=== PATIENT | female | born 1950 | race Two or more races ===

== ENCOUNTER 2025-02-25 12:33 | Inpatient (IN) | payer OTHER ==
[2025-02-25] VITALS (16 sets, daily range): BP systolic 115–172; BP diastolic 66–92; PULSE 84–135; RESP 17–26; TEMP 97.8–98.5; O2SAT 94–98
[~2025-02-25] VITALS: Ht 152.4 cm; Wt 51.3 kg
--- NOTE | 2025-02-25 12:57 | ED.PDOC ---
History of Present Illness HPI Comments This is a 75 year old female RONAL presenting to the ED with chief complaint of abnormal labs. EMS reports patient was seen at [facility] for abdominal pain and associated nausea, vomiting, and dizziness since 12am this morning. EMS relays that labs were performed and she was found to have a troponin of 2700, so they called 911 for assistance. Patient denies any chest pain, SOB, headache, diarrhea, or fever. Chief Complaint: Abnormal LAB's Time Seen by MD: 12:55 Reviewed Notes: Nurses Notes, Chairman And Chief Executive Officer Notes, Medications, Allergies Allergies: Coded Allergies: NO KNOWN ALLERGIES (Unverified , 02/25/25) Information Source: Patient, Emergency Med Personnel Mode of Arrival: EMS Severity: Moderate Timing: Hours Duration: Since onset Prehospital treatment: None Past Medical History PAST MEDICAL HISTORY: Denies Surgical History: Cholecystectomy Surgical History (Other): Facial surgery OPTION TRADER History: No Pertinent OPTION TRADER History Family History Family History: Reviewed,noncontributory to illness Social History Smoker: Non-Smoker Alcohol: Denies ETOH Use Drugs: Denies Drug Use Lives In: Home Constitutional: denies: chills, diaphoresis, fatigue, fever, malaise, sweats, weakness, others EENTM: denies: blurred vision, double vision, ear bleeding, ear discharge, ear drainage, ear pain, ear ringing, eye pain, eye redness, hearing loss, mouth pain, mouth swelling, nasal discharge, nose bleeding, nose congestion, nose pain, photophobia, tearing, throat pain, throat swelling, voice changes, others Respiratory: denies: cough, hemoptysis, orthopnea, SOB at rest, shortness of breath, SOB with excertion, stridor, wheezing, others Cardiovascular: denies: chest pain, dizzy spells, diaphoresis, Dyspnea on exertion, edema, irregular heart beat, left arm pain, lightheadedness, palpitations, PND, syncope, others Gastrointestinal: reports: abdominal pain, nausea, vomiting; denies: abdomen distended, blood streaked bowels, constipated, diarrhea, dysphagia, difficulty swallowing, hematemesis, melena, poor appetite, poor fluid intake, rectal bleeding, rectal pain, others Genitourinary: denies: abnormal vagina bleeding, burning, dyspareunia, dysuria, flank pain, frequency, hematuria, incontinence, pain, , vagina discharge, urgency, others Neurological: reports: dizziness; denies: fainting, headache, left sided numbness, left sided weakness, numbness, paresthesia, pre-existing deficit, right sided numbness, right sided weakness, seizure, speech problems, tingling, tremors, weakness, others Musculoskeletal: denies: back pain, gout, joint pain, joint swelling, muscle pain, muscle stiffness, neck pain, others Integumetry: denies: bruises, change in color, change in hair/nails, dryness, laceration, lesions, lumps, rash, wounds, others Allergic/Immunocompromised: denies: Difficulty Healing, Frequent Infections, Hives, Itching, others Hematologic/Lymphatic: denies: anemia, blood clots, easy bleeding, easy bruising, swollen glands, others Endocrine: denies: excessive hunger, excessive sweating, excessive thirst, excessive urination, flushing, intolerance to cold, intolerance to heat, unexplained weight gain, unexplained weight loss, others Psychiatric: denies: anxiety, bipolar disorder, depression, hopeless, panic disorder, schizophrenia, sleepless, suicidal, others All Other Systems: Reviewed and Negative Physical Exam General Appearance: Moderate Distress, Normal HEENT: Normal ENT Inspection, Pharynx Normal, TMs Normal Neck: Full Range of Motion, Non-Tender, Normal, Normal Inspection Respiratory: Chest Non-Tender, Lungs Clear, No Accessory Muscle Use, No Respiratory Distress, Normal Breath Sounds Cardiovascular: No Edema, No JVD, No Murmur, No Gallop, Normal Peripheral Pulses, Regular Rate/Rhythm Breast Exam: Deferred Gastrointestinal: No Organomegaly, Non Tender, No Pulsatile Mass, Normal Bowel Sounds, Soft Genitalia: Deferred Pelvic: Deferred Rectal: Deferred Extremities: No calf tenderness, Normal capillary refill, Normal inspection, Normal range of motion, Non-tender, No pedal edema Musculoskeletal : Apperance: Normal Neurologic: Alert, office mail clerk II-XII nml as Tested, No Motor Deficits, Normal Affect, Normal Mood, No Sensory Deficits Cerebellar Function: NOT DONE Reflexes: NOT DONE Skin: Dry, Normal Color, Warm Peripheral Pulses: 3+ Radial (R), 3+ Radial (L) Lymphatic: No Adenopathy Was a procedure done? Was a procedure done?: No EKG EKG : Pulse Rate (adult): 99 [place]: Normal Cardiac Rhythm: NSR Block: RBBB Hypertrophy: None ST: Normal Differential Dx Considerations may include: NSTEMI Electrolyte imbalance X-Ray, Labs, Meds, VS Vital Signs Date Time Temp Pulse Resp B/P (MAP) Pulse Ox O2 Delivery O2 Flow Rate FiO2 02/25/25 13:52 96 02/25/25 13:30 98.1 95 20 153/98 (116) 97 98.1 02/25/25 13:30 95 20 97 Room Air* 0 21 02/25/25 12:57 99 02/25/25 12:56 98.7 101 16 186/100 99 98.7 02/25/25 12:50 99 Lab Test 02/25/25 14:11 02/25/25 13:07 Range/Units Troponin I High Sensitivity Pending 5654 *H </=34 ng/L White Blood Count 14.0 H 4.4-10.8 10^3/uL Red Blood Count 5.46 H 4.0-5.20 10^6/uL Hemoglobin 16.2 12.2-16.2 g/dL Hematocrit 47.6 H 36.0-46.0 % Mean Corpuscular Volume 87.2 80.0-100.0 fL Mean Corpuscular Hemoglobin 29.7 28.0-32.0 pg Mean Corpuscular Hemoglobin Concent 34.1 32.0-36.0 g/dL Red Cell Distribution Width 16.3 H 11.8-14.3 % Platelet Count 277 140-450 10^3/uL Mean Platelet Volume 7.5 6.9-10.8 fL Neutrophils (%) (Auto) 86.8 H 37.0-80.0 % Lymphocytes (%) (Auto) 7.3 L 10.0-50.0 % Monocytes (%) (Auto) 5.8 0.0-12.0 % Eosinophils (%) (Auto) 0.0 0.0-7.0 % Basophils (%) (Auto) 0.1 0.0-2.0 % Neutrophils # (Auto) 12.1 H 1.6-8.6 10 ^3/uL Lymphocytes # (Auto) 1.0 0.4-5.4 10 ^3/uL Monocytes # (Auto) 0.8 0-1.3 10 ^3/uL Eosinophils # (Auto) 0 0-0.8 10 ^3/uL Basophils # (Auto) 0 0-0.2 10 ^3/uL Nucleated Red Blood Cells 0.0 % Prothrombin Time 10.6 9.3-11.8 sec Prothrombin Time INR 1.00 0.9-1.15 Activated Partial Thromboplast Time 29.6 24.5-34.5 SEC D-Dimer, Quantitative 2.09 H 0.0-0.49 mg/L FEU Sodium Level 141 136-145 mmol/L Potassium Level 2.7 L 3.5-5.1 mmol/L Chloride Level 104 98-107 mmol/L Carbon Dioxide Level 20 20-31 mmol/L Anion Gap 17 H 5-15 Blood Urea Nitrogen 10 9-23 mg/dL Creatinine 0.62 0.550-1.02 mg/dL Glomerular Filtration Rate Calc 94 >90 mL/min BUN/Creatinine Ratio 16.1 10.0-20.0 Serum Glucose 167 H 74-106 mg/dL Calcium Level 9.2 8.7-10.4 mg/dL Magnesium Level 1.6 1.6-2.6 mg/dL Total Bilirubin 0.7 0.2-1.0 mg/dL Aspartate Amino Transferase (AST) 59 H 13-40 U/L Alanine Aminotransferase (ALT) 29 7-40 U/L Alkaline Phosphatase 162 H 46-116 U/L B-Type Natriuretic Peptide 395.48 0-100 pg/mL Total Protein 7.5 5.7-8.2 g/dL Albumin 4.7 3.2-4.8 g/dL Patient alert. Vitals stable. Came in because of elevated troponin. Answering questions. Blood pressure elevated. Has risk factors for coronary artery disease. Cardiology consultation. Was given clonidine. Was given nitro. Unstable for transfer. Continue monitoring. Cardiac marker elevated. BNP elevated. Informed them about the D-dimer possibly need CT chest. [facility] approved inpatient admission [id number]. Time of 1ST Reevaluation: 13:54 Reevaluation 1ST: Unchanged Patient Education/Counseling: Diagnosis, Treatment Family Education/Counseling: No Family Present SEPSIS Sepsis Screen Physician Orders Electrocardigram (02/25/25 12:57) Electrocardigram (02/25/25 13:57) Electrocardigram (02/25/25 15:57) Troponin-I Hs (02/25/25 14:03) Troponin-I Hs (02/25/25 16:03) Chest Xray 1 View (02/25/25 13:03) Cl Left Heart Cath (02/25/25 13:37) Obtain Consent For: (02/25/25 13:39) Shave Both Groins (02/25/25 13:39) Provide Education Materials (02/25/25 13:39) Obtain Consent For Anesthesia (02/25/25 13:39) Npo (Nothing By Mouth) Diet (02/25/25 Lunch) Potassium Chl 20meq/100ml (02/25/25 14:00) Hydralazine Injection (Apresoline Inject (02/25/25 14:15) Vital Signs Date Time Temp Pulse Resp B/P (MAP) Pulse Ox O2 Delivery O2 Flow Rate FiO2 02/25/25 13:52 96 02/25/25 13:30 98.1 95 20 153/98 (116) 97 98.1 02/25/25 13:30 95 20 97 Room Air* 0 21 02/25/25 12:57 99 02/25/25 12:56 98.7 101 16 186/100 99 98.7 02/25/25 12:50 99 Laboratory Tests Test 02/25/25 13:07 White Blood Count 14.0 10^3/uL (4.4-10.8) H Departure 1 Departure Time of Disposition: 13:15 Impression: Primary Impression: NSTEMI (non-ST elevated myocardial infarction) Disposition: 09 ADMITTED INPATIENT Admit to: Med Surg Condition: Guarded Critical Care Note Critical Care Time?: Yes (90 min-critical care time only) Stability Stability form required: No Heart Score Heart Score: Heart Score Response (Comments) Value History Highly Suspicious 2 EKG Normal 0 Age >65 2 Risk Factors >3 or Hx ASHD 2 Troponin >3 x's Normal limit 2 Total 8 I personally scribed for BERNICE BURNS MD ([email or web address]) on 02/25/25 at 12:57. Electronically submitted by Ishmael Christian ([email or web address]). BERNICE BURNS MD Feb 25, 2025 12:57
[2025-02-25 13:23] LABS: Hematocrit 47.6 % (36.0-46.0); Hemoglobin 16.2 g/dL (12.2-16.2); Mean Corpuscular Hemoglobin 29.7 pg (28.0-32.0); Mean Corpuscular Volume 87.2 fL (80.0-100.0); Nucleated Red Blood Cells % 0.0 %
--- NOTE | 2025-02-25 13:29 | DVHINCON2 ---
Date Seen: Feb 25, 2025 Referring Physician MD Matt Reason for Consultation Elevated troponin History of Present Illness This is a 75-year-old female patient who presents to the emergency room with chief complaint of nausea, vomiting, and dry heaving. The patient reports that symptoms began at approximately midnight today. She reports going over to the [facility] for evaluation. At the [facility], labs were drawn and the patient was noted to have an elevated troponin level of 2694pg/mL. EMS was called and the patient was transferred to this facility for further evaluation. A twelve lead electrocardiogram done in the emergency room reveals normal sinus rhythm with nonspecific changes to inferior leads. Troponin level this facility now at 5654ng/L. Significant past medical history includes hypertension and tobacco use. The patient denies any previous cardiac workup and does not see a technical support analyst in the outpatient setting. Past Medical History Past medical history reviewed. No other significant than mentioned above. Past Surgical History Cholecystectomy Family History Family history reviewed. Social History Patient has a 10 pack-year history, smokes "a couple cigarettes per week" Denies illicit drug use Denies any alcohol use Allergies: Coded Allergies: NO KNOWN ALLERGIES (Unverified , 02/25/25) Home Meds Home medications reviewed. Review of Systems Constitutional: No symptom reported Ears, Nose, & Throat: No symptom reported Eyes: No symptom reported Neurological: No symptoms reported Pulmonary/Respiratory: No symptoms reported Cardiovascular: No symptom reported Gastrointestinal: Nausea Genitourinary: No symptom reported Musculoskeletal: No symptom reported Skin: No symptom reported Psychiatric: No symptom reported Endocrine: No symptom reported Hematologic/Lymphatic: No symptom reported Vital Signs Vital Signs Date Time Temp Pulse Resp B/P (MAP) Pulse Ox O2 Delivery O2 Flow Rate FiO2 02/25/25 12:57 99 02/25/25 12:56 98.7 16 186/100 99 98.7 Physical Exam General Appearance: Cooperative. Well-developed. Well-nourished. No acute distress. Pulmonary/Respiratory: Clear, bilateral breaths sounds. Cardiovascular/Chest: Regular rate and rhythm. Peripheral Pulses: 2+ Radial (R). 2+ Radial (L). 2+ Pedal (R). 2+ Pedal (L) Abdominal Exam: Normal bowel sounds. Ankle Exam: Negative ankle edema Lower extremities: Negative lower extremity edema Neuro/Mental Status: A/OX4, coherent. Thoughts/Psych: Normal thought pattern. Appropriate mood and affect. Good judgment and insight. Appearance: No acute distress. Skin Exam: Normal inspection. Normal color. Warm and dry. Labs/Diagnostic Data Labs Test 02/25/25 13:07 Range/Units White Blood Count 14.0 H 4.4-10.8 10^3/uL Red Blood Count 5.46 H 4.0-5.20 10^6/uL Hemoglobin 16.2 12.2-16.2 g/dL Hematocrit 47.6 H 36.0-46.0 % Mean Corpuscular Volume 87.2 80.0-100.0 fL Mean Corpuscular Hemoglobin 29.7 28.0-32.0 pg Mean Corpuscular Hemoglobin Concent 34.1 32.0-36.0 g/dL Red Cell Distribution Width 16.3 H 11.8-14.3 % Platelet Count 277 140-450 10^3/uL Mean Platelet Volume 7.5 6.9-10.8 fL Neutrophils (%) (Auto) 86.8 H 37.0-80.0 % Lymphocytes (%) (Auto) 7.3 L 10.0-50.0 % Monocytes (%) (Auto) 5.8 0.0-12.0 % Eosinophils (%) (Auto) 0.0 0.0-7.0 % Basophils (%) (Auto) 0.1 0.0-2.0 % Neutrophils # (Auto) 12.1 H 1.6-8.6 10 ^3/uL Lymphocytes # (Auto) 1.0 0.4-5.4 10 ^3/uL Monocytes # (Auto) 0.8 0-1.3 10 ^3/uL Eosinophils # (Auto) 0 0-0.8 10 ^3/uL Basophils # (Auto) 0 0-0.2 10 ^3/uL Nucleated Red Blood Cells 0.0 % Assessment NSTEMI, rule out coronary artery disease Hypertensive urgency Hypokalemia Tobacco use Plan/Recommendation We will continue with the following plan/recommendations (Dr. Delgadillo): Case discussed with . Given the patient's clinical presentation, elevated troponin level, and twelve lead electrocardiogram changes, the patient may benefit from a coronary angiogram with left heart catheterization. The procedure was discussed with the patient in full detail including risks and benefits. Risks include but are not limited to bleeding, contrast-induced nephropathy, coronary dissection, stroke, and even . The patient understands and is agreeable to undergo the procedure. We will schedule the patient at soonest availability. Thank you for allowing us to care for this pa tient. Please call with any questions or concerns. Critical care time spent: 44 minutes This medical document was created using an electronic medical record system with voice recognition software and computerized dictation system. Although this document has been carefully reviewed, there might still be some phonetic and typographical errors. Occasional wrong-word or ``sound-alike substitutions may have occurred due to the inherent limitations of voice recognition software. These areas are purely typographical due to imperfections of the software programs and do not reflect any compromise in the patient's medical care. Please read the chart carefully and recognize, using context, where these substitutions have occurred. Plan discussed with: Patient NYHA Physical activity limitations: NA Date of Service: Feb 25, 2025 Billing Provider: MARLEY NIXON Cardiology Common Codes: 47640-BNUKDKN INP/OBS CARE (High) Cardiology Consultation Codes: 67681-KEMENYLOE CONSULT <45MIN MARLEY NIXON Feb 25, 2025 13:29
[2025-02-25 13:40] LABS: Alanine Aminotransferase 29 U/L (7-40); Albumin 4.7 g/dL (3.2-4.8); Anion Gap 17 (5-15); BUN/Creatinine Ratio 16.1 (10.0-20.0); Blood Urea Nitrogen 10 mg/dL (9-23); Calcium 9.2 mg/dL (8.7-10.4); Carbon Dioxide 20 mmol/L (20-31); Chloride 104 mmol/L (98-107); INR 1.0 (0.9-1.15); Partial Thromboplastin Time 29.6 SEC (24.5-34.5); Prothrombin Time 10.6 sec (9.3-11.8); Sodium 141 mmol/L (136-145); Total Protein 7.5 g/dL (5.7-8.2)
[2025-02-25 13:41] LABS: Alkaline Phosphatase 162 U/L (46-116); Bilirubin, Total 0.7 mg/dL (0.2-1.0); Glucose 167 mg/dL (74-106); Magnesium 1.6 mg/dL (1.6-2.6); Potassium 2.7 mmol/L (3.5-5.1)
[2025-02-25] MEDS ORDERED: POTASSIUM CHL 20MEQ/100ML 100 ML IV SCH (14:00)
--- NOTE | 2025-02-25 14:22 | DVH ---
CHEST RADIOGRAPH Indication: generalized weakness Technique: Single frontal view of the chest was obtained Comparison: None FINDINGS: Lines and Tubes: None Lungs: No focal consolidation. Pleura: No effusion. No pneumothorax. Cardiomediastinal contours: Unremarkable Bones: No acute osseous abnormality. IMPRESSION: No acute cardiopulmonary disease.
[2025-02-25] MEDS: IODIXANOL 320MG/ML 100ML BTL IV ONE (15:12)
[2025-02-25] MEDS: POTASSIUM CHL 20 Meq TABLET PO ONE (15:14)
[2025-02-25] MEDS: fentaNYL CITRATE 100 MCG/2 ML VL ONE (15:22)
[2025-02-25] MEDS: ANGIOMAX 250 MG VIAL IV ONE (15:22)
[2025-02-25] MEDS: HEPARIN SODIUM (PORCINE) 5000 UNITS/ML 1ML VIAL ONE (15:22)
[2025-02-25] MEDS: VERAPAMIL 2.5MG/ML INJ 2ML VIAL IV ONE (15:22)
[2025-02-25] MEDS: LIDOCAINE 2%HCL (LOCAL ANESTH.) INJ 20ML MDV ONE (15:23)
[2025-02-25] MEDS: MIDAZOLAM HCL 2MG/2ML 2ml VIAL (1mg/ml) ONE (15:23)
--- NOTE | 2025-02-25 16:22 | DVHOP2 ---
Operative Report - 2 Report Details Date: 02/25/25 Preop Diagnosis: CAD Postop Diagnosis: Mild cardiomyopathy. Mild takotsubo syndrome. Surgeon: Erick Delgadillo MD Anesthesiologist: Conscious sedation Anesthesia: Mac, Local Consent: The patient was informed of the risks and benefits of the procedure. These include but are not limited to complications of anesthesia, postoperative infection, incomplete relief of symptoms, recurrence of symptoms, damage to blood vessels, nerves and tendons, deep venous thrombosis, pulmonary embolism and possible need for repeat surgery in the future. Complications: No complications Findings: No CAD. Mild cardiomyopathy. Possible takotsubo syndrome. Indications for Surgery: Chest pain. Elevated troponin. Name of Procedure Performed Left heart catheterization bilateral cine coronary angiography. Left ventriculography. Procedure Details Procedure Details: Prior local anesthesia with 2% lidocaine to the right wrist and full informed consent obtained the patient was prepped and draped in usual fashion followed by placement of a six Turkmen sheath into the radial artery through which a multipurpose catheter was used for ventriculography and cannulation of both right and left coronary ostia without complications Hemodynamics: Aortic blood pressure was 110/70 end-diastolic pressure was eight. There was no gradient across the aortic valve on pullback. Coronary anatomy: Right coronary artery is a large vessel it is normal in its proximal mid and distal segments. PDA and posterolateral branches are normal. Left main is large and normal. Left anterior descending coronary artery is normal. No significant stenosis is noted. The circumflex is large with two marginals free of significant disease. Ventriculography in the CORADO projection shows mild apical dyskinesis with an EF of about 60% with hypercontractility of the proximal mid segment of the ventricle. Impression: Mildly diminished functionality of the apical segment with dyski nesis suggestive of the takotsubo syndrome. Normal left ventricular end- diastolic pressure at rest. No significant CAD. Recommendations medical therapy is warranted continue risk factor modification. Condition Guarded Disposition Date of Service: Feb 25, 2025 Billing Provider: ERICK DELGADILLO Sr., MD Cardiology Common Codes: 89288-QZHJVFL INP/OBS CARE (High) Cardiology Procedure Codes: 30071-HRZU HEART CATH W/INTRA INJ ERICK DELGADILLO Sr., MD Feb 25, 2025 16:22
--- NOTE | 2025-02-25 16:57 | DVHHP2 ---
History of Present Illness Reason for Visit: Nausea or vomiting dizziness abdominal pain History of Present Illness 72-year-old female past medical hypertension surgical history gallbladder surgery chief complaint patient was at her primary care clinic and she complain of abdominal pain nausea or vomiting so they sent her for the ED for evaluation. Patient denies any nausea and vomiting denies any diarrhea does state she had some dizziness patient had troponin checked in the ED which shows 2700 so NSTEMI was called and patient was switched off to the field laboratory operator. Dr. Delgadillo did an angiogram today and it appears there was no acute ischemia. Patient is lying in bed no chest pain no shortness with the breath. When evaluating patient's labs from ED white count was 14.0 potassium was found to 2.7 was repleted Accu-Chek was 167 troponin x3 was positive last [id number] D-dimer was elevated at 2.09 BNP was 395.48. With these findings we will admit patient to deal you to monitor for any post catheterization issues. cards will follow. Past Medical History htn Past Surgical History gallbladder Family History Reviewed, non-contributory to the management of this case. Past Social History Smoker denies drug or alcohol use Review of Systems Constitutional: No: Fever, Chills, Sweats, Weakness, Malaise, Other Eyes: No: Pain, Vision change, Conjunctivae inflammation, Eyelid inflammation, Other, Redness ENT: No: Ear pain, Ear discharge, Nose pain, Nose discharge, Nose congestion, Mouth pain, Mouth swelling, Throat pain, Throat swelling, Other Respiratory: No: Cough, Dry, Shortness of breath, SOB with excertion, Wheezing, Hemoptysis, Pleuritic Pain, Sputum, Wheezing, Other Cardiovascular: Chest Pain; No: Palpitations, Orthopnea, Paroxysmal Noc. Dyspnea, Edema, Lt Headedness, Other Gastrointestinal: No: Nausea, Vomiting, Abdominal Pain, Diarrhea, Constipation, Melena, Hematochezia, Other Genitourinary: No Dysuria, No Frequency, No Incontinence, No Hematuria, No Retention, No Other Musculoskeletal: No: other, neck pain, shoulder pain, arm pain, back pain, hand pain, leg pain, foot pain Skin: No: Rash, Lesions, Jaundice, Bruising, Other Neurological: No: Weakness, Numbness, Incoordination, Change in speech, Confusion, Seizures, Other Allergies: Coded Allergies: NO KNOWN ALLERGIES (Unverified , 02/25/25) Medications Current Medications Medications Dose Ordered Sig/Khoa Route Start Time Stop Time Status Last Admin Dose Admin Potassium Chloride 100 ml @ 50 mls/hr Q2H IV 02/25/25 14:00 02/25/25 17:59 Cancel Hydralazine HCl 10 mg Q6HP PRN IV 02/25/25 14:15 Exam Vital Signs Vital Signs Date Time Temp Pulse Resp B/P (MAP) Pulse Ox O2 Delivery O2 Flow Rate FiO2 02/25/25 15:05 98 22 136/84 (101) 98 02/25/25 13:30 98.1 98.1 02/25/25 13:30 Room Air* 0 21 General Appearance: Alert, Oriented X3, Cooperative, No acute distress HEENT: Atraumatic, PERRLA, EOMI, Mucous membr. moist/pink Respiratory: Clear to auscultation, Normal air movement Cardiovascular: Regular rate, Normal S1, Normal S2, No murmurs Abdominal: Normal bowel sounds, Soft, No tenderness, No hepatospenomegaly, No masses Extremities: No clubbing, No cyanosis, No edema, Normal pulses, No tenderness/swelling, Other (Right inner wrist with puncture wound, with pressure fingers nvi +Sturgeon +wiggle ) Skin: No rashes, No breakdown, No significant lesion Neuro: Normal speech, Strength at 5/5 X4 ext, Normal tone, Sensation intact, Cranial nerves 3-12 NL Psych/Mental Status: Mental status NL, Mood NL Labs/Xrays I reviewed labs, imaging CT scan abdomen pelvis, EKG and all diagnostic studies on this patient from ED records and the medical chart Chest x-ray unremarkable Labs Test 02/25/25 14:11 02/25/25 13:07 Range/Units Troponin I High Sensitivity 5973 *H </=34 ng/L White Blood Count 14.0 H 4.4-10.8 10^3/uL Red Blood Count 5.46 H 4.0-5.20 10^6/uL Hemoglobin 16.2 12.2-16.2 g/dL Hematocrit 47.6 H 36.0-46.0 % Mean Corpuscular Volume 87.2 80.0-100.0 fL Mean Corpuscular Hemoglobin 29.7 28.0-32.0 pg Mean Corpuscular Hemoglobin Concent 34.1 32.0-36.0 g/dL Red Cell Distribution Width 16.3 H 11.8-14.3 % Platelet Count 277 140-450 10^3/uL Mean Platelet Volume 7.5 6.9-10.8 fL Neutrophils (%) (Auto) 86.8 H 37.0-80.0 % Lymphocytes (%) (Auto) 7.3 L 10.0-50.0 % Monocytes (%) (Auto) 5.8 0.0-12.0 % Eosinophils (%) (Auto) 0.0 0.0-7.0 % Basophils (%) (Auto) 0.1 0.0-2.0 % Neutrophils # (Auto) 12.1 H 1.6-8.6 10 ^3/uL Lymphocytes # (Auto) 1.0 0.4-5.4 10 ^3/uL Monocytes # (Auto) 0.8 0-1.3 10 ^3/uL Eosinophils # (Auto) 0 0-0.8 10 ^3/uL Basophils # (Auto) 0 0-0.2 10 ^3/uL Nucleated Red Blood Cells 0.0 % Prothrombin Time 10.6 9.3-11.8 sec Prothrombin Time INR 1.00 0.9-1.15 Activated Partial Thromboplast Time 29.6 24.5-34.5 SEC D-Dimer, Quantitative 2.09 H 0.0-0.49 mg/L FEU Sodium Level 141 136-145 mmol/L Potassium Level 2.7 L 3.5-5.1 mmol/L Chloride Level 104 98-107 mmol/L Carbon Dioxide Level 20 20-31 mmol/L Anion Gap 17 H 5-15 Blood Urea Nitrogen 10 9-23 mg/dL Creatinine 0.62 0.550-1.02 mg/dL Glomerular Filtration Rate Calc 94 >90 mL/min BUN/Creatinine Ratio 16.1 10.0-20.0 Serum Glucose 167 H 74-106 mg/dL Calcium Level 9.2 8.7-10.4 mg/dL Magnesium Level 1.6 1.6-2.6 mg/dL Total Bilirubin 0.7 0.2-1.0 mg/dL Aspartate Amino Transferase (AST) 59 H 13-40 U/L Alanine Aminotransferase (ALT) 29 7-40 U/L Alkaline Phosphatase 162 H 46-116 U/L B-Type Natriuretic Peptide 395.48 0-100 pg/mL Total Protein 7.5 5.7-8.2 g/dL Albumin 4.7 3.2-4.8 g/dL SEPSIS Sepsis Screen Date sepsis recognized/suspect: Feb 25, 2025 Time Sepsis recognized/suspect: 8 Recent Procedure: No On Antibiotic Therapy: No Respiratory Rate >20: No Heart Rate >90: Yes Temp<36 C (96.8 F) or >38.3 C: No SBP <90 or MAP <65 mmHG: No New Acute Mental Status Change: No Is the patient on CPAP, BIPAP,: No Physician Orders Electrocardigram (02/25/25 12:57) Electrocardigram (02/25/25 13:57) Electrocardigram (02/25/25 15:57) Chest Xray 1 View (02/25/25 13:03) Cl Left Heart Cath (02/25/25 13:37) Obtain Consent For: (02/25/25 13:39) Shave Both Groins (02/25/25 13:39) Provide Education Materials (02/25/25 13:39) Obtain Consent For Anesthesia (02/25/25 13:39) Npo (Nothing By Mouth) Diet (02/25/25 Lunch) Hydralazine Injection (Apresoline Inject (02/25/25 14:15) Post Cath Vital Signs Q 15min (02/25/25 ) Post Cath Activity Protocol (02/25/25 15:50) Communication Order (02/25/25 15:51) Admit (02/25/25 16:50) Allergies (02/25/25 16:50) Code Status (02/25/25 16:50) Ondansetron Hcl (Zofran) (02/25/25 17:00) Docusate Sodium Capsule (Colace Capsule) (02/25/25 17:00) Complete Blood Count (02/26/25 04:00) Comprehensive Metabolic Panel (02/26/25 04:00) Cardiac Diet-2gna,Lofat,Lochol (02/25/25 Dinner) Condition: Stable (02/25/25 16:50) BRP (02/25/25 16:50) Morphine Sulfate Injection (02/25/25 17:00) Sequential Compression Device (02/25/25 ) Nitroglycerin Sublingual (Ntrostat Subli (02/25/25 17:00) Stat Ekg For Chest Pain (02/25/25 16:50) Notify Of Changes From Base (02/25/25 16:50) Digital Engineer For 24 Hours (02/25/25 16:50) Emergency Dysrhythmia Protocol (02/25/25 16:50) Vital Signs Date Time Temp Pulse Resp B/P (MAP) Pulse Ox O2 Delivery O2 Flow Rate FiO2 02/25/25 15:05 98 22 136/84 (101) 98 02/25/25 13:52 96 02/25/25 13:30 98.1 95 20 153/98 (116) 97 98.1 02/25/25 13:30 95 20 97 Room Air* 0 21 02/25/25 12:57 99 02/25/25 12:56 98.7 101 16 186/100 99 98.7 02/25/25 12:50 99 Laboratory Tests Test 02/25/25 13:07 White Blood Count 14.0 10^3/uL (4.4-10.8) H Medications Medications Dose Ordered Sig/Khoa Route Start Time Stop Time Status Last Admin Dose Admin Potassium Chloride 40 meq ONCE ONCE PO 02/25/25 15:00 02/25/25 15:04 DC 02/25/25 15:14 40 MEQ Assessment/Plan Assessment/Plan acute st segment elevation myocardial infarction found on ekg stat cards consult for stemi s/p cath per nursing cath show no stenosis ordered lisinopril aspirin 81mg after acs stabilized, statin reduce the cholesterol ordered morphine for pain control monitor cath site for bleeding monitor for circulation compromise monitor for heart failure/heart shock symptoms, arrhythmia, bradycardia ordered mag, phos acute hypokalemia k was repleted ordered mag and phos fu results acute leukocytosis likely acute phase reactant monitor Tobacco dependence I counseled the patient for 6 min about smoking suggestions did offer nicotine patch but patient declined patch and tobacco education smoking code 00781 chronic problems htn lisinopril fen/ppx cardiac diet hl scd no gi ppx since no hx of gerds/gi bleed plan admit to [facility] post cath since tachycardia Plan discussed with: Patient My Orders Orders - SURENDRA PIERRE DNP Procedure Category Date Status Time Admit ADMIT 02/25/25 Verified 16:50 Allergies AVINASH 02/25/25 Verified 16:50 Code Status CODE 02/25/25 Verified 16:50 Ondansetron Hcl [facility] 02/25/25 Verified (Zofran) 17:00 Docusate Sodium [facility] 02/25/25 Verified Capsule (Colace 17:00 Complete Blood Count LAB 02/26/25 Verified 04:00 Comprehensive LAB 02/26/25 Verified Metabolic Panel 04:00 Cardiac DIET 02/25/25 Verified Diet-2gna,Lofat,Lochol Dinner Condition: Stable [facility] 02/25/25 Verified 16:50 BRP [facility] 02/25/25 Verified 16:50 Morphine Sulfate [facility] 02/25/25 Verified Injection 17:00 Sequential [facility] 02/25/25 Verified Compression Device Nitroglycerin [facility] 02/25/25 Verified Sublingual (Ntrostat 17:00 Stat Ekg For Chest [facility] 02/25/25 Verified Pain 16:50 Notify Md Of Changes [facility] 02/25/25 Verified From Base 16:50 Digital Engineer For [facility] 02/25/25 Verified 24 Hours 16:50 Emergency Dysrhythmia [facility] 02/25/25 Verified Protocol 16:50 Date of Service: Feb 25, 2025 Billing Provider: SURENDRA PIERRE DNP Common Visit Codes: [id number] INP/OBS CARE (HIGH), [id number] CARE 30- 74 MIN (Total critical care time: Approximately 45 minutes This critical care time included obtaining a history; examining the patient; pulse oximetry; ordering and review of studies; arranging urgent treatment with development of a management plan; evaluation of patient's response to treatment; frequent reass essment; and, discussions with other providers.) SURENDRA PIERRE DNP Feb 25, 2025 16:56
[2025-02-25] MEDS ORDERED: DOCUSATE SOD 100 MG CAP PO PRN (17:00)
[2025-02-25] MEDS ORDERED: NITROGLYCERIN 0.4 MG SL TAB SL PRN (17:00)
[2025-02-25] MEDS: ATORVASTATIN 20 MG TAB PO ONE (17:00)
[2025-02-25] MEDS ORDERED: MORPHINE SULFATE INJ 2 MG/ml SYRG IV PRN (17:00)
[2025-02-25] MEDS: ONDANSETRON HCL 4 MG/2 ML VIAL IV PRN (18:52)
[2025-02-25] MEDS: hydrALAZINE HCL 20 MG/ML VL IV PRN (21:40)
[2025-02-25 23:28] LABS: COVID19 ANTIGEN SOFIA FIA NEGATIVE (NEGATIVE)
[2025-02-26] VITALS (30 sets, daily range): BP systolic 97–161; BP diastolic 57–88; PULSE 84–119; RESP 8–32; TEMP 97.9–99.3; O2SAT 93–98
--- NOTE | 2025-02-26 02:55 | ECG ---
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
[2025-02-26 07:29] LABS: Hematocrit 44.5 % (36.0-46.0); Hemoglobin 15.3 g/dL (12.2-16.2); Mean Corpuscular Hemoglobin 29.8 pg (28.0-32.0); Mean Corpuscular Volume 86.7 fL (80.0-100.0); Nucleated Red Blood Cells % 0.0 %
[2025-02-26 07:45] LABS: Alanine Aminotransferase 23 U/L (7-40); Albumin 4.4 g/dL (3.2-4.8); Anion Gap 11 (5-15); BUN/Creatinine Ratio 14.6 (10.0-20.0); Bilirubin, Total 0.5 mg/dL (0.2-1.0); Blood Urea Nitrogen 13 mg/dL (9-23); Calcium 9.6 mg/dL (8.7-10.4); Carbon Dioxide 24 mmol/L (20-31); Chloride 106 mmol/L (98-107); Potassium 3.6 mmol/L (3.5-5.1); Sodium 141 mmol/L (136-145); Total Protein 7.2 g/dL (5.7-8.2)
[2025-02-26 07:47] LABS: Alkaline Phosphatase 131 U/L (46-116); Glucose 109 mg/dL (74-106)
[2025-02-26] MEDS: LISINOPRIL 5 MG TAB PO SCH (10:35)
--- NOTE | 2025-02-26 17:27 | DVHPN2 ---
Subjective Patient is status post left heart catheterization with shows no significant coronary artery disease but apical dyskinesis suggestive of takotsubo syndrome. Changes from previous H/P or p: No Changes Eyes: No Pain, No Vision change, No Conjunctivae inflammation, No Eyelid inflammation, No Other, No Redness ENT: No Ear pain, No Ear discharge, No Nose pain, No Nose discharge, No Nose congestion, No Mouth pain, No Mouth swelling, No Throat pain, No Throat swelling, No Other Cardiovascular: Chest Pain; No Palpitations, No Orthopnea, No Paroxysmal Noc. Dyspnea, No Edema, No Lt Headedness, No Other Respiratory: No Cough, No Dry, No Shortness of breath, No SOB with excertion, No Wheezing, No Hemoptysis, No Pleuritic Pain, No Sputum, No Other Gastrointestinal: No Nausea, No Vomiting, No Abdominal Pain, No Diarrhea, No Constipation, No Melena, No Hematochezia, No Other Genitourinary: No Dysuria, No Frequency, No Incontinence, No Hematuria, No Retention, No Other Musculoskeletal: No other, No neck pain, No shoulder pain, No arm pain, No back pain, No hand pain, No leg pain, No foot pain Skin: No Rash, No Lesions, No Jaundice, No Bruising, No Other Objective Vitals Vital Signs Date Time Temp Pulse Resp B/P (MAP) Pulse Ox O2 Delivery O2 Flow Rate FiO2 02/26/25 17:00 93 14 139/75 (96) 96 02/26/25 16:00 98.1 98.1 02/26/25 08:30 Nasal Cannula* 1 24 Intake/Output Intake and Output 02/26/25 06:59 Intake Total 100 ml Balance 100 ml Intake Oral 100 ml # Voids 1 Exam HEENT pupils are reactive Neck is supple CV is S1-S2 regular rate and rhythm Respiratory are clear GI positive bowel sound Extremity no edema 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 motor 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 Medications Current Medications Medications Dose Ordered Sig/Khoa Route Start Time Stop Time Status Last Admin Dose Admin Potassium Chloride 100 ml @ 50 mls/hr Q2H IV 02/25/25 14:00 02/25/25 17:59 Cancel Hydralazine HCl 10 mg Q6HP PRN IV 02/25/25 14:15 02/25/25 21:40 10 MG Ondansetron HCl 4 mg Q4HP PRN IV 02/25/25 17:00 02/25/25 23:08 4 MG Docusate Sodium 100 mg BIDPRN PRN PO 02/25/25 17:00 Morphine Sulfate 2 mg Q4HPRN PRN IV 02/25/25 17:00 Nitroglycerin 0.4 mg Q5MINP PRN SL 02/25/25 17:00 Aspirin 81 mg DAILY PO 02/26/25 10:00 02/26/25 10:36 81 MG Atorvastatin Calcium 20 mg HS PO 02/26/25 22:00 Lisinopril 10 mg DAILY PO 02/26/25 10:00 02/26/25 10:35 10 MG Laboratory Results Laboratory Tests 02/26/25 06:25 Chemistry Test 02/26/25 06:25 Albumin 4.4 g/dL (3.2-4.8) Calcium Level 9.6 mg/dL (8.7-10.4) Total Protein 7.2 g/dL (5.7-8.2) LFT Test 02/26/25 06:25 Alanine Aminotransferase (ALT) 23 U/L (7-40) Alkaline Phosphatase 131 U/L (46-116) H Aspartate Amino Transferase (AST) 46 U/L (13-40) H Total Bilirubin 0.5 mg/dL (0.2-1.0) Microbiology Microbiology Date/Time Source Procedure Growth Status 02/25/25 20:00 Nose MRSA Screen - Final Complete Assessment/Plan Assessment/Plan 75-year-old female who initially presented to the hospital with a nausea and vomiting dry heaves found to have elevated troponin 1. Elevated troponin status post left heart catheterization shows evidence of apical dyskinesis suggestive of takotsubo syndrome 2. Hypertensive urgency 3. Chronic tobacco use disorder -status post left heart catheterization shows no evidence of significant coronary artery disease but apical dyskinesis suggestive of takotsubo syndrome Continue current management, discharge plan once cleared by Cardiology. Plan discussed with: Patient Date of Service: Feb 26, 2025 Billing Provider: DOMINGA TURCIOS MD Common Visit Codes: [id number] INP/OBS CARE(MOD) DOMINGA TURCIOS MD Feb 26, 2025 17:27
[2025-02-26] MEDS: ATORVASTATIN 20 MG TAB PO SCH (22:57)
[2025-02-27] VITALS (13 sets, daily range): BP systolic 111–163; BP diastolic 68–95; PULSE 79–111; RESP 13–24; TEMP 98–98.9; O2SAT 93–96
--- NOTE | 2025-02-27 14:05 | DVHPN2 ---
Consult Progress Note Subjective Other Systems: Patient in normal sinus rhythm on machine inker at time of assessment Objective vital signs Vital Sign Date Time Temp Pulse Resp B/P (MAP) Pulse Ox O2 Delivery O2 Flow Rate FiO2 02/27/25 12:00 98.1 86 15 123/77 (92) 96 98.1 02/27/25 08:00 Room Air* 0 21 Total Intake and Output 02/26/25 02/26/25 02/27/25 15:00 23:00 07:00 Intake Total 450 ml Balance 450 ml medications Current Medications Medications Dose Ordered Sig/Khoa Route Start Time Stop Time Status Last Admin Dose Admin Potassium Chloride 100 ml @ 50 mls/hr Q2H IV 02/25/25 14:00 02/25/25 17:59 Cancel Hydralazine HCl 10 mg Q6HP PRN IV 02/25/25 14:15 02/25/25 21:40 10 MG Ondansetron HCl 4 mg Q4HP PRN IV 02/25/25 17:00 02/25/25 23:08 4 MG Docusate Sodium 100 mg BIDPRN PRN PO 02/25/25 17:00 Morphine Sulfate 2 mg Q4HPRN PRN IV 02/25/25 17:00 Nitroglycerin 0.4 mg Q5MINP PRN SL 02/25/25 17:00 Aspirin 81 mg DAILY PO 02/26/25 10:00 02/27/25 10:19 81 MG Atorvastatin Calcium 20 mg HS PO 02/26/25 22:00 02/26/25 22:57 20 MG Lisinopril 10 mg DAILY PO 02/26/25 10:00 02/27/25 10:20 10 MG Examination: GENERAL:Normal, LUNGS:Normal, CVS:Normal, NEURO:Normal laboratory and microbiology Laboratory Tests 02/26/25 06:25 Test 02/26/25 06:25 Range/Units Serum Glucose 109 H 74-106 mg/dL Problem List/Assessment/Plan Problem List/Assessment/Plan NSTEMI, ruled out coronary artery disease ?Takotsubo's syndrome Hypertensive urgency, resolved Hypokalemia, resolved Tobacco use Plan/Recommendations (Dr. Delgadillo): Case discussed with . The patient underwent a coronary angiogram with left heart catheterization on 02/25/2025 which revealed no significant CAD but with notable mildly diminished functionality of the apical segment with dyskinesis suggestive of Takotsubo's syndrome. A transthoracic echocardiogram reveals an EF of 50%. Continue with blood pressure control as tolerated and lipid-lowering agent. There is no further inpatient cardiac workup indicated at this time. We will recommend for the patient to follow up with Cardiology in the outpatient setting post discharge. Thank you for allowing us to care for this patient. Please call with any questions or concerns. This medical document was created using an electronic medical record system with voice recognition software and computerized dictation system. Although this document has been carefully reviewed, there might still be some phonetic and typographical errors. Occasional wrong-word or ``sound-alike substitutions may have occurred due to the inherent limitations of voice recognition software. These areas are purely typographical due to imperfections of the software programs and do not reflect any compromise in the patient's medical care. Please read the chart carefully and recognize, using context, where these substitutions have occurred. Plan discussed with: Patient Date of Service: Feb 27, 2025 Billing Provider: MARLEY NIXON Common Visit Codes: [id number] CARE 30-74 MIN MARLEY NIXON Feb 27, 2025 14:05
--- NOTE | 2025-02-27 16:03 | DVHSR ---
APPROVED REPORT EXAM: Two-dimensional and M-mode echocardiogram with Doppler and color Doppler. Blood Pressure: 138/75 mmHg INDICATION Evaluate cardiac function RISK FACTORS Height: 5'0", Weight: 113 DIMENSIONS LVDd3.2 (3.8-5.7cm)LA (2D)3.1 (1.9-4.0cm)Aortic Root3.3 (2.0-3.7cm) LVDs2.2 (2.5-4.0cm)LA (MM) (1.9-4.0cm)Aortic Cusp Exc1.5 (1.5-2.0cm) EF (%) 60.0 (55-70%)Rt. Atrium3.2 (1.9-4.0cm)Asc. Aorta cm IVSd1.1 (0.7-1.1cm)RV (D) (1.8-2.4cm) PWd1.1 (0.7-1.1cm) Mitral Valve MitralMitral Stenosis E wave0.54m/sMV Mean GR.mmHg A wave1.06m/sMV Peak GR.mmHg E/A ratio0.52D MVAcm2 DECEL [id number] 1/2 Timems Aortic Valve Aortic ValveAortic Stenosis V10.96m/Sabina Mean GR.3mmHg V21.04m/Sabina Peak GR.4mmHg LVOT Diameter1.9 (1.8-2.4cm)Doppler AVA2.62cm2 Other Information Technically limited study due to body habitus and implants. Conclusion Sinus rhythm. Normal chamber sizes. Normal valves. EF of 50% with normal RV function. Dopplers unremarkable. No pericardial effusion masses or vegetations.
--- NOTE | 2025-02-27 17:24 | DVHPN2 ---
Subjective Patient is status post left heart catheterization with shows no significant coronary artery disease but apical dyskinesis suggestive of takotsubo syndrome. Changes from previous H/P or p: No Changes Eyes: No Pain, No Vision change, No Conjunctivae inflammation, No Eyelid inflammation, No Other, No Redness ENT: No Ear pain, No Ear discharge, No Nose pain, No Nose discharge, No Nose congestion, No Mouth pain, No Mouth swelling, No Throat pain, No Throat swelling, No Other Cardiovascular: Chest Pain; No Palpitations, No Orthopnea, No Paroxysmal Noc. Dyspnea, No Edema, No Lt Headedness, No Other Respiratory: No Cough, No Dry, No Shortness of breath, No SOB with excertion, No Wheezing, No Hemoptysis, No Pleuritic Pain, No Sputum, No Other Gastrointestinal: No Nausea, No Vomiting, No Abdominal Pain, No Diarrhea, No Constipation, No Melena, No Hematochezia, No Other Genitourinary: No Dysuria, No Frequency, No Incontinence, No Hematuria, No Retention, No Other Musculoskeletal: No other, No neck pain, No shoulder pain, No arm pain, No back pain, No hand pain, No leg pain, No foot pain Skin: No Rash, No Lesions, No Jaundice, No Bruising, No Other Objective Vitals Vital Signs Date Time Temp Pulse Resp B/P (MAP) Pulse Ox O2 Delivery O2 Flow Rate FiO2 02/27/25 16:00 98.0 92 19 135/77 (96) 94 98.0 02/27/25 08:00 Room Air* 0 21 Intake/Output Intake and Output 02/27/25 07:00 Intake Total 450 ml Balance 450 ml Intake Oral 450 ml # Voids 2 Exam HEENT pupils are reactive Neck is supple CV is S1-S2 regular rate and rhythm Respiratory are clear GI positive bowel sound 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 Medications Current Medications Medications Dose Ordered Sig/Khoa Route Start Time Stop Time Status Last Admin Dose Admin Potassium Chloride 100 ml @ 50 mls/hr Q2H IV 02/25/25 14:00 02/25/25 17:59 Cancel Hydralazine HCl 10 mg Q6HP PRN IV 02/25/25 14:15 02/25/25 21:40 10 MG Ondansetron HCl 4 mg Q4HP PRN IV 02/25/25 17:00 02/25/25 23:08 4 MG Docusate Sodium 100 mg BIDPRN PRN PO 02/25/25 17:00 Morphine Sulfate 2 mg Q4HPRN PRN IV 02/25/25 17:00 Nitroglycerin 0.4 mg Q5MINP PRN SL 02/25/25 17:00 Aspirin 81 mg DAILY PO 02/26/25 10:00 02/27/25 10:19 81 MG Atorvastatin Calcium 20 mg HS PO 02/26/25 22:00 02/26/25 22:57 20 MG Lisinopril 10 mg DAILY PO 02/26/25 10:00 02/27/25 10:20 10 MG Laboratory Results Laboratory Tests 02/26/25 06:25 Microbiology Microbiology Date/Time Source Procedure Growth Status 02/25/25 20:00 Nose MRSA Screen - Final Complete Assessment/Plan Assessment/Plan 75-year-old female who initially presented to the hospital with a nausea and vomiting dry heaves found to have elevated troponin 1. Elevated troponin status post left heart catheterization shows evidence of apical dyskinesis suggestive of takotsubo syndrome 2. Hypertensive urgency 3. Chronic tobacco use disorder -status post left heart catheterization shows no evidence of significant coronary artery disease but apical dyskinesis suggestive of takotsubo syndrome Continue current management, discharge plan once cleared by Cardiology. Plan discussed with: Patient, Other (Patient's bedside RN) My Orders Orders - DOMINGA TURCIOS MD Procedure Category Date Status Time Transfer Orders XFER 02/27/25 Transmitted 16:08 Complete Blood Count LAB 02/28/25 Verified 04:00 Basic Metabolic Panel LAB 02/28/25 Verified 04:00 Date of Service: Feb 27, 2025 Billing Provider: DOMINGA TURCIOS MD Common Visit Codes: [id number] INP/OBS CARE(MOD) DOMINGA TURCIOS MD Feb 27, 2025 17:24
[2025-02-28 05:00] VITALS: BP 127/62; PULSE 92; RESP 19; TEMP 97.9; O2SAT 95
[2025-02-28 07:51] LABS: Hematocrit 40.5 % (36.0-46.0); Hemoglobin 14.0 g/dL (12.2-16.2); Mean Corpuscular Hemoglobin 30.2 pg (28.0-32.0); Mean Corpuscular Volume 87.2 fL (80.0-100.0); Nucleated Red Blood Cells % 0.0 %
[2025-02-28 07:59] LABS: Anion Gap 11 (5-15); Carbon Dioxide 25 mmol/L (20-31); Chloride 104 mmol/L (98-107); Potassium 3.8 mmol/L (3.5-5.1); Sodium 140 mmol/L (136-145)
[2025-02-28 08:00] VITALS: PULSE 92
[2025-02-28 08:00] LABS: Calcium 9.2 mg/dL (8.7-10.4)
[2025-02-28 08:05] LABS: BUN/Creatinine Ratio 18.3 (10.0-20.0); Blood Urea Nitrogen 15 mg/dL (9-23); Glucose 128 mg/dL (74-106)
[2025-02-28 09:00] VITALS: BP 114/42; PULSE 84; RESP 18; TEMP 98; O2SAT 95
--- NOTE | 2025-02-28 10:43 | ECG ---
[facility] Test Date: 2025-02-25 Test Time: 12:48:44 Pat Name: KIMBERLY RONQUILLO Department: Room: 0249T A Gender: F Prize Jacker: JESUSITA : 1950 Requested By: BERNICE BURNS Order Number: [id number] Reading MD: Son Delgadillo Measurements Intervals [place] Rate: 99 P: 76 MO: 112 QRS: 121 QRSD: 91 T: 20 QT: 374 QTc: 480 Interpretive Statements Sinus rhythm Right atrial enlargement Right axis deviation Minimal ST depression, inferior leads Electronically Signed On 03-02-2025 9:25:59 PDT by Son Delgadillo Please click the below link to view image of tracing.
[2025-02-28 13:00] VITALS: BP 108/64; PULSE 84; RESP 18; TEMP 98.2; O2SAT 96
[2025-02-28] MEDS ORDERED: ATOR20TA50 PO (16:17)
[2025-02-28] MEDS ORDERED: LISI-275 PO (16:17)
[2025-02-28] MEDS ORDERED: ASPI-325 PO (16:17)
--- NOTE | 2025-02-28 16:19 | DVHDS2 ---
Discharge Summary Date of Admission Feb 25, 2025 at 16:50 Date of Discharge: Feb 28, 2025 Labs/Diagnostic Data: Laboratory Results Test 02/28/25 07:12 02/26/25 06:25 02/25/25 22:45 02/25/25 14:11 White Blood Count 9.3 10^3/uL (4.4-10.8) Red Blood Count 4.65 10^6/uL (4.0-5.20) Hemoglobin 14.0 g/dL (12.2-16.2) Hematocrit 40.5 % (36.0-46.0) Mean Corpuscular Volume 87.2 fL (80.0-100.0) Mean Corpuscular Hemoglobin 30.2 pg (28.0-32.0) Mean Corpuscular Hemoglobin Concent 34.6 g/dL (32.0-36.0) Red Cell Distribution Width 16.2 % (11.8-14.3) Platelet Count 251 10^3/uL (140-450) Mean Platelet Volume 7.6 fL (6.9-10.8) Neutrophils (%) (Auto) 64.9 % (37.0-80.0) Lymphocytes (%) (Auto) 23.2 % (10.0-50.0) Monocytes (%) (Auto) 8.9 % (0.0-12.0) Eosinophils (%) (Auto) 2.1 % (0.0-7.0) Basophils (%) (Auto) 0.9 % (0.0-2.0) Neutrophils # (Auto) 6.0 10 ^3/uL (1.6-8.6) Lymphocytes # (Auto) 2.2 10 ^3/uL (0.4-5.4) Monocytes # (Auto) 0.8 10 ^3/uL (0-1.3) Eosinophils # (Auto) 0.2 10 ^3/uL (0-0.8) Basophils # (Auto) 0.1 10 ^3/uL (0-0.2) Nucleated Red Blood Cells 0.0 % Sodium Level 140 mmol/L (136-145) Potassium Level 3.8 mmol/L (3.5-5.1) Chloride Level 104 mmol/L (98-107) Carbon Dioxide Level 25 mmol/L (20-31) Anion Gap 11 (5-15) Blood Urea Nitrogen 15 mg/dL (9-23) Creatinine 0.82 mg/dL (0.550-1.02) Glomerular Filtration Rate Calc 75 mL/min (>90) BUN/Creatinine Ratio 18.3 (10.0-20.0) Serum Glucose 128 mg/dL (74-106) Calcium Level 9.2 mg/dL (8.7-10.4) Total Bilirubin 0.5 mg/dL (0.2-1.0) Aspartate Amino Transferase (AST) 46 U/L (13-40) Alanine Aminotransferase (ALT) 23 U/L (7-40) Alkaline Phosphatase 131 U/L (46-116) Total Protein 7.2 g/dL (5.7-8.2) Albumin 4.4 g/dL (3.2-4.8) SARS-CoV-2 Antigen (Rapid) Negative (NEGATIVE) Troponin I High Sensitivity 5973 ng/L (</=34) Test 02/25/25 13:07 Prothrombin Time 10.6 sec (9.3-11.8) Prothrombin Time INR 1.00 (0.9-1.15) Activated Partial Thromboplast Time 29.6 SEC (24.5-34.5) D-Dimer, Quantitative 2.09 mg/L FEU (0.0-0.49) Magnesium Level 1.6 mg/dL (1.6-2.6) B-Type Natriuretic Peptide 395.48 pg/mL (0-100) Other Laboratory Tests 02/28/25 07:12 Brief Hx & Hospital Course: 75-year-old female who initially presented to the hospital with a nausea and vomiting dry heaves found to have elevated troponin . Patient underwent status post left heart catheterization shows evidence of apical dyskinesis suggestive of takotsubo syndrome. Patient was started on beta ashok and currently stable to be discharged. Patient does have chronic tobacco use disorder nicotine cessation counseling has been discussed. Patient needs to follow up with the PCP and Cardiology upon discharge in 1-2 weeks. Condition at Discharge: Stable Final Diagnosis/Problems List 75-year-old female who initially presented to the hospital with a nausea and vomiting dry heaves found to have elevated troponin 1. Elevated troponin status post left heart catheterization shows evidence of apical dyskinesis suggestive of takotsubo syndrome 2. Hypertensive urgency 3. Chronic tobacco use disorder Discharge Disposition: Home SNF Discharge Will this Physician continue t: No Discharge Instruct/Medications Diet: Cardiac 2g Na,low cholest Activity: No Restrictions, As Tolerated Follow Up/Referral: Follow up with the PCP and cardiology in 1-2 weeks. Medications: As reconciled. New Medications: Aspirin (Aspirin Low Dose) 81 Mg Tab 81 MG PO DAILY for 30 Days, #30 TAB Atorvastatin Calcium (Atorvastatin Calcium) 20 Mg Tab 20 MG PO HS for 30 Days, #30 TAB Lisinopril (Lisinopril) 5 Mg Tab 10 MG PO DAILY for 30 Days, #60 TAB Scheduled Aspirin (Aspirin Low Dose), 81 MG PO DAILY Atorvastatin Calcium (Atorvastatin Calcium), 20 MG PO HS Lisinopril (Lisinopril), 10 MG PO DAILY Discharge Statement: "Patient was advised to return to the ER or call 911 if any headaches, dizziness, shortness of breath, chest pain, abdominal pain, bleeding, fevers, or worsening of medical condition. Patient was counseled about treatment plan, medications, possible side effects, patientverbalized understanding. All questions were answered to the best of my ability. This discharge took greater then 30 minutes in planning, reviewing documentation, counseling the patient, and discussing with other team members." ASSESSMENT ASSESSMENT Assessment 75-year-old female who initially presented to the hospital with a nausea and vomiting dry heaves found to have elevated troponin 1. Elevated troponin status post left heart catheterization shows evidence of apical dyskinesis suggestive of takotsubo syndrome 2. Hypertensive urgency 3. Chronic tobacco use disorder Date of Service: Feb 28, 2025 Billing Provider: DOMINGA TURCIOS MD Common Visit Codes: 24263-JUF/OBS DISCH DAY >30min DOMINGA TURCIOS MD Feb 28, 2025 16:19
[2025-02-28 16:37] VITALS: BP 114/42; TEMP 36.8
== END 2025-02-28 17:15 | disposition home or self-care (01) | DRG 281 ==
LOC: ER 12:33 → EDBD 12:33 → OVERFLOW 16:50 → DOU 19:53 → TELE-EAST 02-28 00:28
PROVIDERS: ADMIT Internal Medicine; ATTEND Internal Medicine
PROC: 4A023N7 Measurement of Cardiac Sampling and Pressure, Left Heart, Percutaneous Approach (ICD-10-PCS; principal; 2025-02-25)
PROC: B211YZZ Fluoroscopy of Multiple Coronary Arteries using Other Contrast (ICD-10-PCS; 2025-02-25)
PROC: B215YZZ Fluoroscopy of Left Heart using Other Contrast (ICD-10-PCS; 2025-02-25)
DX: I21.4 Non-ST elevation (NSTEMI) myocardial infarction (principal); I51.81 Takotsubo syndrome; D72.829 Elevated white blood cell count, unspecified; E87.6 Hypokalemia; I16.0 Hypertensive urgency; F17.200 Nicotine dependence, unspecified, uncomplicated; I10 Essential (primary) hypertension; Z90.49 Acquired absence of other specified parts of digestive tract; Z79.899 Other long term (current) drug therapy
CPT/HCPCS: 36415; 71045; 80048; 80053; 83735; 83880; 84484; 85025; 85379; 85610; 85730; 87081; 87426; 93005; 93306; 93458; 96374; 96375; 99152; 99291; G0378; J2250; J2405; Q9967